=== PATIENT | female | born 1995 | race African-American/Black ===

== ENCOUNTER 2016-05-28 21:12 | Emergency (ER) | payer OTHER ==
[~2016-05-28] VITALS: Ht 149.9 cm; Wt 54.5 kg
[2016-05-28 21:19] VITALS: BP 127/89; PULSE 84; RESP 16; TEMP 97.9; O2SAT 100
[2016-05-28] MEDS ORDERED: ACYC200C66 PO (22:59)
--- NOTE | 2016-05-28 23:02 | PD ---
HPI Chief Complaint: Facial Pain or Swelling Time Seen by Provider: 22:52 Travel History International Travel<30 days: No Contact w/Intl Traveler<30days: No Traveled to known affect area: No History of Present Illness HPI This is a 21-year-old female with no significant past medical history. She presents for evaluation of a rash on her lower lip. Symptoms started yesterday. She endorses slight discomfort, no itching. No drainage. No fevers or chills. She had this problem once before, approximately 8 months ago , and symptoms resolved spontaneously at that time. She has no other complaints at this time. PFSH Past Medical History Developmental Delay: No Diminished Hearing: No Immunizations Current: No ?: Not : 2 Para: 2 Miscarriage: 0 : 0 Social History Alcohol Use: No Tobacco Use: No Substance Use: No (DENIES BUT HX OF) Allergies-Medications (Allergen,Severity, Reaction): Coded Allergies: No Known Allergies (Verified , 05/28/16) Reported Meds & Prescriptions Reported Meds & Active Scripts Active Acyclovir 200 Mg Cap 200 Mg PO 5 TIMES A DAY 7 Days Review of Systems General / Constitutional: No: Fever, Chills HENT: Positive: Other (rash on lower lip) Skin: Positive Rash Physical Exam Narrative GENERAL: Well-developed well-nourished female in no acute distress SKIN: Warm and dry. HEAD: Atraumatic. Normocephalic. EYES: Pupils equal and round. No scleral icterus. No injection or drainage. ENT: No nasal bleeding or discharge. Mucous membranes pink and moist. On the lower lip there is a clump of vesicles, no drainage. NECK: Trachea midline. No JVD. No Adenopathy. Neck supple full range of motion Data Data Last Documented VS Vital Signs Date Time Temp Pulse Resp B/P Pulse Ox O2 Delivery O2 Flow Rate FiO2 05/28/16 21:19 97.9 84 16 127/89 100 MDM Medical Decision Making Medical Screen Exam Complete: Yes Emergency Medical Condition: Yes Medical Record Reviewed: Yes Differential Diagnosis Herpes labialis, allergic contact dermatitis, impetigo, coxsackievirus Narrative Course 21-year-old immunocompetent female presents with a rash on the lower lip for 2 days. Examination reveals a clump of vesicles consistent with herpes labialis. She has had this once before, approximately 8 months ago. Plan is to treat her with oral acyclovir for 7 days. She is stable for discharge. Diagnosis Primary Impression: Herpes labialis Additional Instructions: Medication as prescribed. Follow-up with primary care physician as needed. Return for any emergent medical conditions. Med/Other Pt SpecificInfo: Prescription(s) given Scripts Acyclovir 200 Mg [id number] Mg PO 5 TIMES A DAY 7 Days Ref 0 Prov:Conchita Davidson MD 05/28/16 Disposition: 01 DISCHARGE HOME Condition: Stable Hernando Carrillo May 28, 2016 23:02
== END 2016-05-28 23:48 | disposition home or self-care (01) ==
LOC: NEPB 21:12
DX: B00.1 Herpesviral vesicular dermatitis (principal)
CPT/HCPCS: 99283

== ENCOUNTER 2017-07-21 22:25 | Emergency (ER) | payer OTHER ==
[~2017-07-21] VITALS: Ht 149.9 cm; Wt 51.0 kg
[~2017-07-21 22:25] MED LIST: ACYC200C66 PO
[2017-07-21 22:28] VITALS: BP 125/58; PULSE 76; RESP 16; TEMP 97.8; O2SAT 100
[2017-07-21] MEDS ORDERED: PENI500T PO (23:37)
[2017-07-21] MEDS ORDERED: TRAM50TA PO (23:37)
--- NOTE | 2017-07-21 23:41 | PD ---
HPI Chief Complaint: Oral / Dental Pain or Problem Time Seen by Provider: 22:53 Travel History International Travel<30 days: No Contact w/Intl Traveler<30days: No Traveled to known affect area: No History of Present Illness HPI This patient complains of dental pain. She has a large cavity of the right lower jaw. She is having difficulty getting dental follow-up. Symptoms severity is moderate. No fever PFSH Past Medical History Developmental Delay: No Diminished Hearing: No Immunizations Current: No ?: Not : 2 Para: 2 Miscarriage: 0 : 0 Social History Alcohol Use: No Tobacco Use: No Substance Use: No (DENIES BUT HX OF) Allergies-Medications (Allergen,Severity, Reaction): Coded Allergies: No Known Allergies (Verified , 05/28/16) Reported Meds & Prescriptions Reported Meds & Active Scripts Active Tramadol (Tramadol HCl) 50 Mg Tab 50 Mg PO Q6H PRN Penicillin V Potassium 500 Mg Tab 500 Mg PO Q8H Acyclovir 200 Mg Cap 200 Mg PO 5 TIMES A DAY 7 Days Review of Systems General / Constitutional: No: Fever HENT: No: Headaches Cardiovascular: No: Chest Pain or Discomfort Respiratory: No: Cough Physical Exam Narrative NECK: Symmetrical appearance, midline trachea. No mass or crepitus. Thyroid without enlargement, tenderness, or mass. SKIN: Focused skin assessment reveals no rash or ulcers. Skin is warm and dry. Palpation shows no induration or nodules. Oral cavity: Patient has a large cavity in a right lower jaw tooth. Surrounding gingiva is pink and healthy without abscess. Data Data Last Documented VS Vital Signs Date Time Temp Pulse Resp B/P (MAP) Pulse Ox O2 Delivery O2 Flow Rate FiO2 07/21/17 22:28 97.8 76 16 125/58 (80) 100 Room Air MDM Medical Decision Making Medical Screen Exam Complete: Yes Emergency Medical Condition: Yes Medical Record Reviewed: Yes Differential Diagnosis Cavity, gingivitis, abscess Narrative Course I have reviewed the patient's electronic medical record. I prescribe some penicillin and medicine for pain. Recommending dental follow- up Diagnosis Primary Impression: Pain, dental Additional Instructions: Follow-up with dentist The patient was warned about potential sedation for the medications they will receive on prescription. Med/Other Pt SpecificInfo: Prescription(s) given Scripts Tramadol (Tramadol) 50 Mg Tab 50 MG PO Q6H Y for PAIN, #20 TAB 0 Refills Prov: Curtis Sun MD 07/21/17 Penicillin V Potassium (Penicillin V Potassium) 500 Mg Tab 500 MG PO Q8H for Infection, #20 TAB 0 Refills Prov: Curtis Sun MD 07/21/17 Disposition: 01 DISCHARGE HOME Condition: Stable Curtis Sun MD Jul 21, 2017 23:41
== END 2017-07-22 00:30 | disposition home or self-care (01) ==
LOC: NEPD 22:25
DX: K08.89 Other specified disorders of teeth and supporting structures (principal)
CPT/HCPCS: 99283

== ENCOUNTER 2017-08-17 10:58 | Emergency (ER) | payer OTHER ==
[~2017-08-17] VITALS: Ht 180.3 cm; Wt 50.0 kg
[~2017-08-17 10:58] MED LIST changes: +PENI500T PO; +TRAM50TA PO
[2017-08-17 11:06] VITALS: BP 124/65; PULSE 90; RESP 16; TEMP 97.6; O2SAT 100
[2017-08-17] MEDS ORDERED: PENI500T PO (13:09)
[2017-08-17] MEDS ORDERED: HYDR-3516 PO (13:09)
--- NOTE | 2017-08-17 13:09 | PD ---
HPI Chief Complaint: Back/ Neck Pain or Injury Time Seen by Provider: 13:02 Travel History International Travel<30 days: No Contact w/Intl Traveler<30days: No Traveled to known affect area: No History of Present Illness HPI 22-year-old female complains of low back pain. Duration has been about 2-3 days. Symptoms have improved somewhat from their worst. She's had no urinary frequency or discharge. She's had no fever. Patient also complains of right lower dentalgia associated with molar fracture. She reports scheduled dentist appointment in 2 days. She is not on penicillin. PFSH Past Medical History Developmental Delay: No Diminished Hearing: No Immunizations Current: No ?: Not : 2 Para: 2 Miscarriage: 0 : 0 Social History Alcohol Use: No Tobacco Use: No Substance Use: No (DENIES BUT HX OF) Allergies-Medications (Allergen,Severity, Reaction): Coded Allergies: No Known Allergies (Verified Adverse Reaction, Unknown, 08/17/17) Reported Meds & Prescriptions Reported Meds & Active Scripts Active Hydrocodone-Acetaminophen 5-325 mg Tab 1 Tab PO Q6H PRN Penicillin V Potassium 500 Mg Tab 500 Mg PO Q8H Tramadol (Tramadol HCl) 50 Mg Tab 50 Mg PO Q6H PRN Acyclovir 200 Mg Cap 200 Mg PO 5 TIMES A DAY 7 Days Review of Systems General / Constitutional: No: Fever Cardiovascular: No: Chest Pain or Discomfort Neurologic: No: Weakness, Syncope, Focal Abnormalities, Coordination Problem, Sensory Disturbance Physical Exam Narrative GENERAL: 22 yo F, WNWD, NAD Vital Signs Date Time Temp Pulse Resp B/P (MAP) Pulse Ox O2 Delivery O2 Flow Rate FiO2 08/17/17 13:07 16 08/17/17 11:06 97.6 90 16 124/65 (84) 100 SKIN: Warm and dry. HEAD: Normocephalic. DENTITION: Moderate dental decay. First premolar R lower side with fracture and TTP. EYES: No scleral icterus. No injection or drainage. NECK: Supple, trachea midline. No JVD or lymphadenopathy. CARDIOVASCULAR: Regular rate and rhythm without murmurs, gallops, or rubs. RESPIRATORY: Breath sounds equal bilaterally. No accessory muscle use. GASTROINTESTINAL: Abdomen soft, non-tender, nondistended. MUSCULOSKELETAL: No cyanosis, or edema. Minimal parathoracic/lumbar muscle spasm. Ambulatory with normal gate. BACK: Minimal parathoracolumbar TTP. No CVA tenderness. Data Data Last Documented VS Vital Signs Date Time Temp Pulse Resp B/P (MAP) Pulse Ox O2 Delivery O2 Flow Rate FiO2 08/17/17 13:07 16 08/17/17 11:06 97.6 90 124/65 (84) 100 Orders Orders Acetamin-Hydrocod 325-5 Mg (Poth 5-325 (08/17/17 13:15) Ed Discharge Order (08/17/17 13:09) MDM Medical Decision Making Medical Screen Exam Complete: Yes Emergency Medical Condition: Yes Medical Record Reviewed: Yes Differential Diagnosis dental abscess, dental carry, myofascial strain Narrative Course patient has low back pain of benign etiology and dental carry with infection. scripts as below. Diagnosis Primary Impression: Dental infection Additional Impression: Low back pain Qualified Codes: M54.5 - Low back pain Referrals: Dentist 2 days Med/Other Pt SpecificInfo: Prescription(s) given Scripts Hydrocodone-Acetaminophen (Hydrocodone-Acetaminophen) 5-325 mg Tab 1 TAB PO Q6H Y for PAIN SCALE 6 TO 10, #12 TAB 0 Refills Prov: Robert Dougherty MD 08/17/17 Penicillin V Potassium (Penicillin V Potassium) 500 Mg Tab 500 MG PO Q8H for Infection, #20 TAB 0 Refills Prov: Robert Dougherty MD 08/17/17 Disposition: 01 DISCHARGE HOME Condition: Stable Robert Dougherty MD Aug 17, 2017 13:09
[2017-08-17] MEDS ORDERED: ACETAMINOPHEN/HYDROcodone 325 MG/5 MG TAB PO ONE (13:15)
[2017-08-17 13:28] VITALS: BP 100/82; PULSE 70; RESP 20; TEMP 98.2; O2SAT 100
[2017-08-17 13:37] VITALS: BP 118/69; TEMP 98
== END 2017-08-17 13:37 | disposition home or self-care (01) ==
LOC: NEPD 10:58
DX: M54.5 Low back pain (principal); K04.7 Periapical abscess without sinus; Z79.899 Other long term (current) drug therapy
CPT/HCPCS: 99283

== ENCOUNTER 2017-11-12 08:32 | Emergency (ER) | payer OTHER ==
[~2017-11-12] VITALS: Ht 149.9 cm; Wt 54.0 kg
[~2017-11-12 08:32] MED LIST changes: -ACYC200C66 PO; +HYDR-3516 PO; -PENI500T PO; -TRAM50TA PO
[2017-11-12 08:39] VITALS: BP 120/59; PULSE 80; RESP 16; TEMP 98.1; O2SAT 100
[2017-11-12 09:03] VITALS: BP 116/66; PULSE 81; RESP 18; O2SAT 99
--- NOTE | 2017-11-12 09:24 | PD ---
HPI Chief Complaint: Chest Pain Time Seen by Provider: 09:07 Travel History International Travel<30 days: No Contact w/Intl Traveler<30days: No Traveled to known affect area: No History of Present Illness HPI The patient was seen and examined in the presence of the nurse. This patient complains of chest pain. She has had it for 9 months. It is in the area of her left breast. No injury. No shortness of breath or fever or cough. Symptom severity is moderate. Spells are very brief lasting seconds and resolve. Denies any medical problems chronically. No alleviating factors. No exacerbating factors. PFSH Past Medical History Medical History: Denies Significant Hx Developmental Delay: No Diabetes: No Diminished Hearing: No Immunizations Current: No Tetanus Vaccination: Unknown Influenza Vaccination: No ?: Not LMP: 10/11/17 : 2 Para: 2 Miscarriage: 0 : 0 Past Surgical History Surgical History: No Previous Surgery Social History Alcohol Use: No Tobacco Use: No Substance Use: No Allergies-Medications (Allergen,Severity, Reaction): Coded Allergies: No Known Allergies (Verified Adverse Reaction, Unknown, 08/17/17) Reported Meds & Prescriptions Reported Meds & Active Scripts Active Review of Systems General / Constitutional: No: Fever Eyes: No: Visual changes HENT: No: Headaches Cardiovascular: Positive: Chest Pain or Discomfort Respiratory: No: Shortness of Breath Gastrointestinal: No: Abdominal Pain Genitourinary: No: Dysuria Musculoskeletal: No: Pain Skin: No Rash Neurologic: No: Weakness Psychiatric: No: Depression Endocrine: No: Polydipsia Hematologic/Lymphatic: No: Easy Bruising Physical Exam Narrative GENERAL: Well-nourished, well-developed patient in no apparent distress. SKIN: Focused skin assessment reveals no rash and nodules. Skin is Warm and dry. HEAD: Atraumatic. Normocephalic. EYES: Pupils equal and round. No scleral icterus. No injection or drainage. ENT: No nasal bleeding or discharge. Mucous membranes pink and moist. NECK: Trachea midline. No JVD. CARDIOVASCULAR: Regular rate and rhythm. No murmur appreciated. RESPIRATORY: No accessory muscle use. Clear to auscultation. Breath sounds equal bilaterally. GASTROINTESTINAL: Abdomen soft, non-tender, nondistended. Hepatic and splenic margins not palpable. MUSCULOSKELETAL: No obvious deformities. No clubbing. No cyanosis. No edema. NEUROLOGICAL: Awake and alert. No obvious cranial nerve deficits. Motor grossly within normal limits. Normal speech. PSYCHIATRIC: Appropriate mood and affect; insight and judgment normal. Data Data Last Documented VS Vital Signs Date Time Temp Pulse Resp B/P (MAP) Pulse Ox O2 Delivery O2 Flow Rate FiO2 11/12/17 09:03 81 18 116/66 (83) 99 Room Air 11/12/17 08:39 98.1 Orders Orders Chest, Single Ap (11/12/17 ) Electrocardiogram (11/12/17 ) [facility] Medical Decision Making Medical Screen Exam Complete: Yes Emergency Medical Condition: Yes Medical Record Reviewed: Yes Differential Diagnosis Differential diagnosis includes CO, angina, pericarditis, pleurisy, GERD, anxiety. Narrative Course I have reviewed the patient's electronic medical record. I reviewed her EKG which shows sinus rhythm without ST elevation or ectopy I reviewed her chest x-ray which is normal Patient chest pain is not going to be ischemic as a healthy 22-year-old. Workup is negative here Recommend she discuss it with her outpatient family physician No clinical suspicion of PE. Symptoms are not pleuritic and she is not dyspneic Diagnosis Primary Impression: Non-cardiac chest pain Additional Instructions: The patient was advised to follow up with their physician and return if they worsen. Med/Other Pt SpecificInfo: Other Disposition: 01 DISCHARGE HOME Condition: Stable Curtis Sun MD Nov 12, 2017 09:24
--- NOTE | 2017-11-12 09:55 | RADRPT ---
EXAM DATE: 11/12/2017 9:44 AM EDT AGE/SEX: 22 years / Female INDICATIONS: Chest pain on and off for 8 months. CLINICAL DATA: This is the patient's initial encounter. Patient reports that signs and symptoms have been present for 7 - 11 months and indicates a pain score of 4/10. MEDICAL/SURGICAL HISTORY: None. None. COMPARISON: No prior exams available for comparison. FINDINGS: A single AP view of the chest demonstrates the lungs to be symmetrically aerated without evidence of mass, infiltrate or effusion. The cardiomediastinal contours are unremarkable. Osseous structures a re intact. CONCLUSION: No acute intrathoracic disease. Electronically signed by: Lane Walker MD 11/12/2017 9:54 AM EDT
--- NOTE | 2017-11-12 17:01 | EKG ---
Date Performed: 11/12/2017 Time Performed: 09:20:46 PTAGE: 22 years EKG: Sinus rhythm NORMAL ECG INTERPRETATION BASED ON A DEFAULT AGE OF 39 YEARS PREVIOUS TRACING : 09/30/2012 13.52 Since the previous tracing, no significant change not ed DOCTOR: Hernesto Carvajal Interpretating Date/Time 11/12/2017 16:58:42
== END 2017-11-12 11:54 | disposition home or self-care (01) ==
LOC: NEPC 08:32
DX: R07.89 Other chest pain (principal)
CPT/HCPCS: 71045; 93005